=== PATIENT | male | born 1980 | race American Indian/Alaskan Native ===

== ENCOUNTER 2017-01-20 16:47 | Emergency (ER) | payer MEDICAID, OTHER ==
[2017-01-20 16:47] VITALS: BMI 27.3
[2017-01-20 17:28] VITALS: BP 124/79; PULSE 78; RESP 18; TEMP 98.2; O2SAT 98
--- NOTE | 2017-01-20 17:35 | ED PDOC ---
Arrival/HPI - General Time Seen by Provider: 01/20/17 17:29 - History of Present Illness Narrative History of Present Illness (Text): 01/20/17 17:31 36yo male with 3 month duration R. knee swelling. Denies any trauma or injury. Pt states he has no pain. 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 Denies fevers or chills. No hip or ankle pains or complaints. States he had similar swelling with L. knee in the past which resolved spontaneously. Past Medical History - Provider Review Nursing Documentation Reviewed: Yes - Musculoskeletal/Rheumatological Hx Falls: No - Psychiatric Hx Depression: Yes Hx Substance Use: No Family/Social History Family/Social History: No Known Family HX Smoking Status: Current Some Days Smoker Hx Alcohol Use: No Hx Substance Use: No Allergies/Home Meds Allergies/Adverse Reactions: Allergies No Known Allergies Allergy (Verified 03/26/15 11:52) Home Medications: Home Meds Medication Instructions Recorded Confirmed Divalproex [Depakote EC] 500 mg PO BID 03/26/15 03/26/15 Paroxetine HCl [Paxil] 20 mg PO DAILY 03/26/15 03/26/15 Sertraline [Zoloft] 50 mg PO DAILY 03/26/15 03/26/15 Review of Systems - Physician Review All systems were reviewed & negative as marked: Yes - Review of Systems Constitutional: absent: Fevers, Night Sweats Musculoskeletal: Joint Swelling. absent: Back Pain, Neck Pain Physical Exam Vital Signs Reviewed: Yes Vital Signs Temp Pulse Resp BP Pulse Ox 01/20/17 17:27 98.2 F 78 18 124/79 98 Temperature: Afebrile Blood Pressure: Normal Pulse: Regular Respiratory Rate: Normal Appearance: Positive for: Well-Appearing Pain Distress: None Mental Status: Positive for: Alert and Oriented X 3 - Systems Exam Lower Extremity: Present: Normal Inspection (R. knee), NORMAL PULSES, Normal ROM , Capillary Refill < 2 s, Other (neg. ant/post drawer tests). No: Edema, CALF TENDERNESS, Cyanosis, Devaughn's Sign, Tenderness, Swelling, Erythema, Deformity, Temperature Abnormalties Neurological: Present: Motor Func Grossly Intact Medical Decision Making ED Course and Treatment: 01/20/17 17:37 36yo male with R. knee swelling. Pt denies pain. No swelling or abnormal findings on examination. Knee not tender, full active and passive ROM, distal neurovasc. intact. Pt does not need emergent imaging at this time, instructed to f/u with outpatient deaf/hard of hearing specialist for further w/u Pt states he understands to return to the ER right away for new or worsening symptoms or for inability to f/u with PMD or specialist as instructed. Patient states that he fully agrees with and understands discharge instructions. States that he agrees with the plan and disposition. Verbalized and repeated discharge instructions and plan. I have given the patient opportunity to ask any additional questions. Disposition/Present on Arrival - Present on Arrival Any Indicators Present on Arrival: No History of DVT/PE: No History of Uncontrolled Diabetes: No Urinary Catheter: No History Surgical Site Infection Following: None - Disposition Have Diagnosis and Disposition been Completed?: Yes Diagnosis: Knee swelling Disposition: HOME/ ROUTINE Disposition Time: 17:30 Patient Plan: Discharge Condition: GOOD Discharge Instructions (ExitCare): Swollen Joint (ED) Additional Instructions: PLEASE RETURN TO THE EMERGENCY DEPARTMENT FOR NEW OR WORSENING SYMPTOMS. RETURN RIGHT AWAY IF YOU CANNOT FOLLOW UP WITH YOUR PRIMARY CARE DOCTOR, CLINIC, OR SPECIALIST IN 1-2 DAYS. Referrals: Pranay Raza, [Staff Provider] - Follow up with primary
== END 2017-01-20 18:09 | disposition home or self-care (01) ==
LOC: ED 16:47
DX: M25.461 Effusion, right knee (principal); F17.210 Nicotine dependence, cigarettes, uncomplicated